=== PATIENT | female | born 1940 | race Caucasian/White ===

== ENCOUNTER 2018-02-28 03:24 | Emergency (ER) | payer MEDICARE, BC ==
[~2018-02-28] VITALS: Ht 172.7 cm; Wt 55.0 kg
[~2018-02-28 03:24] MED LIST: BIOT1CAP3 PO; CHLO1CAP PO; ESTR0.5T3 PO; [UNRECOGNIZED DRUG - OTHER]; [UNRECOGNIZED DRUG - REMARK]
[2018-02-28 03:26] VITALS: BP 143/87
[2018-02-28] MEDS ORDERED: VITAMINS (03:53)
== END 2018-02-28 06:24 | disposition home or self-care (01) ==
LOC: ED 05:53
DX: S06.310A Contusion and laceration of right cerebrum without loss of consciousness, initial encounter (principal); Z87.891 Personal history of nicotine dependence; W01.0XXA Fall on same level from slipping, tripping and stumbling without subsequent striking against object, initial encounter; Y93.89 Activity, other specified; Y99.8 Other external cause status; Y92.002 Bathroom of unspecified non-institutional (private) residence as the place of occurrence of the external cause
CPT/HCPCS: 70450; 72125; 99284

== ENCOUNTER 2019-07-07 15:24 | Outpatient (CLI) | payer MEDICARE ==
[~2019-07-07 15:24] MED LIST changes: +VITAMINS
== END 2019-07-07 23:59 | disposition home or self-care (01) ==
LOC: CVU 15:24
PROVIDERS: ATTEND Nurse Practitioner Family
DX: R20.8 Other disturbances of skin sensation (principal); I10 Essential (primary) hypertension; K58.0 Irritable bowel syndrome with diarrhea; G47.00 Insomnia, unspecified; F41.9 Anxiety disorder, unspecified; F33.0 Major depressive disorder, recurrent, mild
CPT/HCPCS: 93922

== ENCOUNTER → 2019-09-06 | Outpatient (CLI) | payer MEDICARE | END | disposition home or self-care (01) | LOC: RAD 14:03 | PROVIDERS: ATTEND Nurse Practitioner Family | DX: M47.816 Spondylosis without myelopathy or radiculopathy, lumbar region (principal); R20.1 Hypoesthesia of skin | CPT/HCPCS: 72114 ==

== ENCOUNTER → 2020-06-16 | Outpatient (CLI) | payer MEDICARE ==
[~2020-06-16] MED LIST changes: +BUPR100T8 PO; +DIPH1TAB PO; +DIPH50CA62 PO; +HAIR PO; +LOSA50TA14 PO; +SERT100T32 PO; +SKIN PO; +SULI200T2 PO; +[UNRECOGNIZED DRUG - OTHER]; +[UNRECOGNIZED DRUG - OTHER] PO; +vitamin D3 PO; +xanax PO
[2020-06-16 15:17] LABS: BASOPHILS % (AUTO) 1 % (0-1); EOSINOPHILS % (AUTO) 2 % (1-7); LYMPHOCYTES % (AUTO) 22 % (22-44); MEAN CORPUSCULAR HEMOGLOBIN 32.1 pg (27.0-34.8); MEAN CORPUSCULAR HGB CONC 33.7 g/dL (32.4-35.8); MEAN PLATELET VOLUME 8.3 fL (7.4-10.4); MONOCYTES % (AUTO) 10 % (2-9); NEUTROPHILS % (AUTO) 65 % (42-75); PLATELET COUNT 260 x10^3/uL (130-400); RED BLOOD COUNT 4.35 x10^6/uL (3.82-5.3); RED CELL DISTRIBUTION WIDTH 12.7 % (9.6-15.2)
[2020-06-16 15:22] LABS: ALANINE AMINOTRANSFERASE 19 U/L (12-78); ALBUMIN 3.6 g/dL (3.4-5.0); ANION GAP 1 mmol/L (5-15); CALCIUM 8.8 mg/dL (8.5-10.1); CHLORIDE 108 mmol/L (98-107); CREATININE 0.63 mg/dL (0.55-1.02)
[2020-06-16 15:25] LABS: ALKALINE PHOSPHATASE 119 U/L (45-117); BILIRUBIN,TOTAL 0.6 mg/dL (0.2-1.0); TOTAL PROTEIN 6.9 g/dL (6.4-8.2)
[2020-06-16 17:20] LABS: MD NO
== END | disposition home or self-care (01) ==
LOC: STAR 12:35
PROVIDERS: ATTEND Orthopaedic Surgery
DX: Z01.818 Encounter for other preprocedural examination (principal); Z20.828 Contact with and (suspected) exposure to other viral communicable diseases; M17.11 Unilateral primary osteoarthritis, right knee
CPT/HCPCS: 36415; 80053; 85025; 87081; 87147; 87635; 93005

== ENCOUNTER → 2020-10-27 | Outpatient (CLI) | payer MEDICARE ==
[~2020-10-27] MED LIST changes: +DIAZ5TAB PO; +HYDR2TAB29 PO; +SERT100T PO
[2020-10-27 12:59] LABS: BASOPHILS % (AUTO) 1 % (0-1); EOSINOPHILS % (AUTO) 3 % (1-7); LYMPHOCYTES % (AUTO) 22 % (22-44); MEAN CORPUSCULAR HEMOGLOBIN 31.5 pg (27.0-34.8); MEAN CORPUSCULAR HGB CONC 33.8 g/dL (32.4-35.8); MEAN PLATELET VOLUME 7.9 fL (7.4-10.4); MONOCYTES % (AUTO) 8 % (2-9); NEUTROPHILS % (AUTO) 66 % (42-75); PLATELET COUNT 256 x10^3/uL (130-400); RED BLOOD COUNT 4.39 x10^6/uL (3.82-5.3); RED CELL DISTRIBUTION WIDTH 13.4 % (9.6-15.2)
[2020-10-27 13:07] LABS: MD NO
[2020-10-27 13:10] LABS: ALANINE AMINOTRANSFERASE 21 U/L (12-78); ALBUMIN 3.7 g/dL (3.4-5.0); ANION GAP 5 mmol/L (5-15); CALCIUM 8.6 mg/dL (8.5-10.1); CHLORIDE 107 mmol/L (98-107)
[2020-10-27 13:12] LABS: ALKALINE PHOSPHATASE 123 U/L (45-117); BILIRUBIN,TOTAL 1.1 mg/dL (0.2-1.0); TOTAL PROTEIN 6.6 g/dL (6.4-8.2)
== END | disposition home or self-care (01) ==
LOC: STAR 11:23
PROVIDERS: ATTEND Orthopaedic Surgery
DX: Z01.812 Encounter for preprocedural laboratory examination (principal); Z20.822 Contact with and (suspected) exposure to COVID-19; M17.12 Unilateral primary osteoarthritis, left knee; I51.7 Cardiomegaly
CPT/HCPCS: 36415; 80053; 85025; 87081; 93005; U0003

== ENCOUNTER 2021-04-12 17:11 | Emergency (ER) | payer MEDICARE ==
[~2021-04-12] VITALS: Ht 170.2 cm; Wt 60.3 kg
[~2021-04-12 17:11] MED LIST changes: +ASPI-963 PO
[2021-04-12 17:37] VITALS: BP 142/56
--- NOTE | 2021-04-12 21:24 | NUR ---
PT CALLED FOR ROOM NA X 1
--- NOTE | 2021-04-12 21:42 | NUR ---
PT CALLED FOR ROOM. NA X 2
--- NOTE | 2021-04-12 22:34 | NUR ---
NA X 3
== END 2021-04-12 22:35 | disposition left against medical advice (07) ==
LOC: ED 17:30
DX: N89.8 Other specified noninflammatory disorders of vagina (principal)
CPT/HCPCS: 99281